=== PATIENT | male | born 1965 | race Caucasian/White ===

== ENCOUNTER → 2022-01-04 | Outpatient (CLI) | payer OTHER ==
[2022-01-04 09:44] LABS: BUN/CREATININE RATIO 16 (0-10)
== END ==
LOC: CT 07:31
PROVIDERS: General Practice
DX: R10.9 Unspecified abdominal pain (principal); K76.0 Fatty (change of) liver, not elsewhere classified; R07.9 Chest pain, unspecified; N28.1 Cyst of kidney, acquired; Z00.00 Encounter for general adult medical examination without abnormal findings
CPT/HCPCS: 36415; 71260; 76700; 80053; Q9967

== ENCOUNTER → 2022-02-03 | Outpatient (CLI) | payer OTHER | LOC: CT 09:42 | DX: K76.0 Fatty (change of) liver, not elsewhere classified (principal); R10.9 Unspecified abdominal pain; K21.9 Gastro-esophageal reflux disease without esophagitis; R07.9 Chest pain, unspecified; N28.1 Cyst of kidney, acquired | CPT/HCPCS: Q9967 ==